=== PATIENT | female | born 1975 | race American Indian/Alaskan Native ===

== ENCOUNTER 2024-02-04 08:40 | Day surgery (SDC) | payer BC, MEDICAID ==
[2024-02-04] MEDS ORDERED: Midazolam 1 MG/ML 2 ML SDV ONE (08:53)
[2024-02-04] MEDS ORDERED: fentaNYL 50 MCG/ML SDV ONE (08:53)
[2024-02-04] MEDS ORDERED: Propofol 200 MG/20 ML SDV ONE (08:53)
[2024-02-04] MEDS: Lactated Ringers 1,000 ML IV SCH (09:14)
== END 2024-02-04 11:15 | disposition home or self-care (01) ==
LOC: JP.SDS 08:40
PROVIDERS: ATTEND Family Medicine
DX: Z12.11 Encounter for screening for malignant neoplasm of colon (principal); G40.909 Epilepsy, unspecified, not intractable, without status epilepticus
CPT/HCPCS: 45378; J2250; J2704; J3010; J7120; 00812-QZ